=== PATIENT | female | born 1960 | race Caucasian/White ===

== ENCOUNTER 2021-08-25 23:33 | Emergency (ER) | payer BC ==
[~2021-08-25] VITALS: Ht 162.6 cm; Wt 81.2 kg
[2021-08-26] VITALS: BP_SYST 136
--- NOTE | 2021-08-26 | NUR ---
Patient to ER bed 06 to gown for evaluation. Side rails up. Report given to BERENICE Arshad
--- NOTE | 2021-08-26 00:12 | NUR ---
60 YR OLD AOX4, AMBULATORY FEMALE WITH COMPLAINT OF RIGHT LEG SWELLING WITH SEVERE KNEE PAIN 6/10 FOR ONE DAY. PT REPORTS RECENT BREAST CA DIAGNOSIS AND UNDERGOING CHEMO THERAPY WEKKLY FOR THE LAST 5 WEEKS. PT PENDING MD EVALUATION. WILL MONITOR NEEDED
--- NOTE | 2021-08-26 01:00 | NUR ---
AT THE BEDSIDE FOR PT EVALUATION
--- NOTE | 2021-08-26 01:44 | NUR ---
PT DISCHARGED WITH HOMECARE INSTRUCTIONS. PT ENCOUARGED TO FOLLOW UP WITH PRIMARY CARE DOCTOR WITHIN 3 TO 5 DAYS. ALL QUESTIONS ANSWERED, PT DISCHARGED WITH ALL BELONGINGS
== END 2021-08-26 01:44 | disposition home or self-care (01) ==
LOC: SED 23:33
DX: I80.01 Phlebitis and thrombophlebitis of superficial vessels of right lower extremity (principal); I80.251 Phlebitis and thrombophlebitis of right calf muscular vein
CPT/HCPCS: 99281

== ENCOUNTER 2023-06-01 16:40 | Inpatient (IN) | payer BC ==
[~2023-06-01] VITALS: Ht 162.6 cm; Wt 72.1 kg
[~2023-06-01 16:40] MED LIST: BENA40TA89 PO; CHOL100034 PO; CYCL10TA25 PO; HYDR12.55 PO; LEVO-62 PO; PRED20TA PO; PREG150C47 PO; WELSR150 PO
[2023-06-01 17:01] VITALS: BP_SYST 128; PULSE 128; RESP 18; TEMP 97.2; O2SAT 98
[2023-06-01 17:11] LABS: ABG O2 SAT% ESTIMATE 99.7 % (94.0-100.0); BLOOD GAS BASE EXCESS -0.4 mmol/L (-3.0-3.0); BLOOD GAS HCO3 21.3 mmol/L (21.0-27.0); BLOOD GAS PCO2 27.9 mmHg (35.0-45.0); BLOOD GAS PO2 261.2 mmHg (75.0-100.0)
[2023-06-01 17:14] LABS: BLOOD GAS PH 7.501 (7.350-7.450)
[2023-06-01] MEDS: LevALBUTEROL HCL 1.25 MG/0.5 ML *CONC.* VIAL.NEB (XOPENEX CONC.) INH ONE (17:27)
[2023-06-01 18:01] LABS: HEMATOCRIT 37.5 % (36-48); HEMOGLOBIN 12.4 g/dL (12.0-16.0); MEAN CORPUSCULAR HEMOGLOBIN 28 pg (27-31); MEAN CORPUSCULAR HGB CONC 33 % (32-36); MEAN CORPUSCULAR VOLUME 85 fL (79.0-98.0); PLATELET COUNT (AUTO) 140 K/uL (130-430); RED BLOOD CELL COUNT(AUTO) 4.41 MIL/uL (4.2-6.2); RED CELL DISTRIBUTION WIDTH 16.3 % (9.0-15.0); WHITE BLOOD COUNT (AUTO) 15.7 K/uL (4.8-10.8)
[2023-06-01 18:05] LABS: INR 1.1 (0.8-1.2); PROTHROMBIN TIME 11.3 SECS (9.5-12.5)
[2023-06-01 18:08] LABS: ALANINE AMINOTRANSFERASE 47 U/L (12-78); ALBUMIN 1.8 g/dL (3.4-4.8); ANION GAP 11 (5-15); ASPARTATE AMINOTRANSFERASE 91 U/L (10-37); CALCIUM 8.3 mg/dL (8.4-11.0); CARBON DIOXIDE 24 mmol/L (23-29); CHLORIDE 104 mmol/L (98-107); CREATININE 0.69 mg/dL (0.55-1.30); GFR AFRICAN AMERICAN 112 mL/min (>90); GFR NON AFRICAN-AMERICAN 92 mL/min (>90); GLUCOSE 102 mg/dL (74-106); SODIUM SERUM 139 mmol/L (136-145); TOTAL BILIRUBIN 0.6 mg/dL (0.0-1.0); TOTAL PROTEIN, SERUM 6.2 g/dL (6.4-8.3); UREA NITROGEN, BLOOD 24 mg/dL (8-21)
[2023-06-01] MEDS: NACL 0.9% 1,000 ML IV ONE ×2 (18:08→20:07)
[2023-06-01] MEDS: KETOROLAC TROMETHAMINE 30 MG VIAL IVP ONE (18:11)
[2023-06-01 18:12] LABS: BAND % (MANUAL) 2 % (0-6); BASOPHILS % (MANUAL) 0 % (0-2); EOSINOPHILS % (MANUAL) 0 % (0-7); LYMPHOCYTES % (MANUAL) 10 % (20-46); MONOCYTES % (MANUAL) 7 % (0-11); PLATELET ESTIMATE ADEQUATE (ADEQUATE)
[2023-06-01 18:16] LABS: BILIRUBIN,DIRECT 0.1 mg/dL (0.0-0.3)
[2023-06-01] MEDS: DEXAMETHASONE SOD PHOSPHATE 10 MG/ML VIAL IVP ONE (18:36)
[2023-06-01 18:41] LABS: BILIRUBIN,URINE NEGATIVE (NEGATIVE); BLOOD, URINE NEGATIVE (NEGATIVE); CLARITY/URINE CLEAR (CLEAR); COLOR,URINE YELLOW (YELLOW); GLUCOSE,URINE NEGATIVE (NEGATIVE); KETONES,URINE 1+ (NEGATIVE); LEUKOCYTE ESTERASE ,URINE NEGATIVE (NEGATIVE); NITRITE, URINE NEGATIVE (NEGATIVE); PROTEIN URINE NEGATIVE (NEGATIVE); UROBILINOGEN,URINE 0.2 (0.2-1.0)
[2023-06-01] MEDS ORDERED: PIPERACILLIN/TAZOBACTAM 3.375 GM/VIAL (ZOSYN) IV ONE (18:50)
[2023-06-01] MEDS: PIPERACILLIN/TAZO 3.375 GM in NS 50 ML IV ONE (18:56)
[2023-06-01] MEDS: guaiFENesin/DEXTROMETHORPHAN 10 ML UDC PO ONE (18:57)
[2023-06-01] MEDS ORDERED: VANCOMYCIN HCL 1000 MG/VIAL IV ONE (20:05)
[2023-06-01] MEDS: VANCOMYCIN HCL 1,000 MG in NS 250 ML IV ONE (20:13)
[2023-06-01] MEDS ORDERED: NALOXONE HCL 0.4 MG/ML AMP (NARCAN) IVP PRN ×2 (20:30)
[2023-06-01] MEDS ORDERED: HYDROcodone/ACETAMIN 5-325 MG TAB (NORCO/ VICODIN) PO PRN (20:30)
[2023-06-01] MEDS ORDERED: ONDANSETRON HCL 4 MG/2 ML VIAL IVP PRN (20:30)
[2023-06-01] MEDS ORDERED: LORazepam 2 MG/ML VIAL IVP PRN (20:30)
[2023-06-01] MEDS ORDERED: HYDROcodone/ACETAMIN 10-325 MG TAB PO PRN (20:30)
[2023-06-01] MEDS ORDERED: ACETAMINOPHEN 325 MG TABLET PO PRN (20:30)
[2023-06-01 20:32] VITALS: BP_SYST 124; PULSE 114; O2SAT 98
[2023-06-01] MEDS ORDERED: BENAZEPRIL HCL 20 MG TABLET (LOTENSIN) PO SCH (21:00)
[2023-06-01] MEDS: buPROPion HCL 150 MG TABLET.SA PO SCH (22:14)
[2023-06-01] MEDS: NORMAL SALINE 5 ML DISP.SYRIN IVF SCH (22:14)
[2023-06-01 22:51] LABS: INFLUENZA TYPE A Negative (NEGATIVE); INFLUENZA TYPE B NEGATIVE (NEGATIVE)
[2023-06-01 23:50] VITALS: O2SAT 97
[2023-06-02] VITALS (25 sets, daily range): BP systolic 111–151; PULSE 96–113; RESP 15–38; TEMP 97.5–97.8; O2SAT 88–100
[2023-06-02] MEDS: ALBUTEROL SULFATE 0.083% 2.5 MG/3 ML VIAL.NEB INH SCH (00:37)
[2023-06-02] MEDS: IPRATROPIUM BROM 0.5 MG/2.5 ML VIAL.NEB (ATROVENT) INH SCH (00:38)
[2023-06-02] MEDS ORDERED: PIPERACILLIN/TAZOBACTAM 3.375 GM/VIAL (ZOSYN) IV ONE ×2 (01:18→06:13)
[2023-06-02] MEDS: PIPERACILLIN/TAZO 3.375/DEX-IS 50 ML IV SCH (01:23)
[2023-06-02 04:21] LABS: CALCIUM 8.4 mg/dL (8.4-11.0); CREATININE 0.74 mg/dL (0.55-1.30); POTASSIUM 4.3 mmol/L (3.5-5.1)
[2023-06-02 04:36] LABS: BASOPHILS % (AUTO) 0.2 % (0.0-2.0); EOSINOPHILS % (AUTO) 0.1 % (0.0-4.0); HEMATOCRIT 33.7 % (36-48); LYMPHOCYTES # (AUTO) 0.8 K/uL (1.0-5.5); LYMPHOCYTES % (AUTO) 5.5 % (20.5-51.5); MEAN CORPUSCULAR HEMOGLOBIN 28 pg (27-31); MEAN CORPUSCULAR HGB CONC 33 % (32-36); MEAN CORPUSCULAR VOLUME 85 fL (79.0-98.0); MONOCYTES # (AUTO) 0.6 K/uL (0.0-1.0); MONOCYTES % (AUTO) 4.4 % (1.7-9.3); NEUTROPHILS # (AUTO) 12.5 K/uL (1.8-7.7); NEUTROPHILS % (AUTO) 89.8 % (40.0-70.0); PLATELET COUNT (AUTO) 134 K/uL (130-430); RED BLOOD CELL COUNT(AUTO) 3.94 MIL/uL (4.2-6.2); RED CELL DISTRIBUTION WIDTH 16.7 % (9.0-15.0); WHITE BLOOD COUNT (AUTO) 13.9 K/uL (4.8-10.8)
[2023-06-02] MEDS ORDERED: NON-FORMULARY MEDICATION (Hydrochlorothiazide 12.5 MG) PO SCH (09:00)
[2023-06-02] MEDS ORDERED: PREGABALIN 150 MG PO SCH (09:00)
[2023-06-02] MEDS: lisinopriL 20 MG TABLET PO SCH (10:53)
[2023-06-02] MEDS: HYDROCHLOROTHIAZIDE 12.5 MG CAPSULE (HCTZ) PO SCH (10:54)
[2023-06-02] MEDS: CYCLOBENZAPRINE HCL 10 MG TABLET (FLEXERIL) PO SCH (10:54)
[2023-06-02] MEDS: PREGABALIN 75 MG CAPSULE (LYRICA) PO SCH (10:55)
[2023-06-02] MEDS: METHYLPREDNISOLONE SOD SUCC 40 MG/ML VIAL IVP SCH (13:51)
[2023-06-02] MEDS ORDERED: methylPREDNISolone SOD SUCC/PF 62.5 MG/ML VIAL IVP SCH (14:00)
[2023-06-02] MEDS ORDERED: iohexoL 350 mgI/mL, 100 ML INFUS..BTL IV ONE (15:03)
[2023-06-03] VITALS (32 sets, daily range): BP systolic 104–145; PULSE 90–119; RESP 12–29; TEMP 96–98.6; O2SAT 90–98
[2023-06-03 06:12] LABS: BASOPHILS % (AUTO) 0.2 % (0.0-2.0); HEMATOCRIT 32.3 % (36-48); HEMOGLOBIN 10.5 g/dL (12.0-16.0); LYMPHOCYTES # (AUTO) 0.7 K/uL (1.0-5.5); LYMPHOCYTES % (AUTO) 4.5 % (20.5-51.5); MEAN CORPUSCULAR HEMOGLOBIN 28 pg (27-31); MEAN CORPUSCULAR HGB CONC 33 % (32-36); MEAN CORPUSCULAR VOLUME 85 fL (79.0-98.0); MONOCYTES # (AUTO) 0.9 K/uL (0.0-1.0); MONOCYTES % (AUTO) 5.6 % (1.7-9.3); NEUTROPHILS # (AUTO) 13.9 K/uL (1.8-7.7); NEUTROPHILS % (AUTO) 89.7 % (40.0-70.0); PLATELET COUNT (AUTO) 137 K/uL (130-430); RED BLOOD CELL COUNT(AUTO) 3.79 MIL/uL (4.2-6.2); RED CELL DISTRIBUTION WIDTH 17.2 % (9.0-15.0); WHITE BLOOD COUNT (AUTO) 15.5 K/uL (4.8-10.8)
[2023-06-03 06:19] LABS: ERYTHROCYTE SEDIMENTATION RATE 59 MM/HR (0-20)
[2023-06-03 06:44] LABS: CALCIUM 8.9 mg/dL (8.4-11.0); CREATININE 0.83 mg/dL (0.55-1.30); POTASSIUM 4.8 mmol/L (3.5-5.1)
[2023-06-03] MEDS: CHOLECALCIFEROL (VITAMIN D3) 2,000 UNIT TABLET PO SCH (08:16)
[2023-06-03] MEDS: AZITHROMYCIN 500 MG in NS 250 ML IV SCH (13:07)
[2023-06-03] MEDS: FUROSEMIDE 20 MG/2 ML VIAL IVP ONE (14:47)
[2023-06-03] MEDS: METHYLPREDNISOLONE SOD SUCC 40 MG/ML VIAL IVP SCH (22:05)
[2023-06-04] VITALS (37 sets, daily range): BP systolic 100–130; PULSE 90–117; RESP 11–35; TEMP 97.8–99.3; O2SAT 18–99
[2023-06-04 05:29] LABS: ERYTHROCYTE SEDIMENTATION RATE 30 MM/HR (0-20)
[2023-06-04 05:31] LABS: BASOPHILS % (AUTO) 0.1 % (0.0-2.0); HEMATOCRIT 30.5 % (36-48); LYMPHOCYTES # (AUTO) 0.7 K/uL (1.0-5.5); LYMPHOCYTES % (AUTO) 4.3 % (20.5-51.5); MEAN CORPUSCULAR HEMOGLOBIN 28 pg (27-31); MEAN CORPUSCULAR HGB CONC 33 % (32-36); MEAN CORPUSCULAR VOLUME 84 fL (79.0-98.0); MONOCYTES # (AUTO) 0.7 K/uL (0.0-1.0); MONOCYTES % (AUTO) 4.5 % (1.7-9.3); NEUTROPHILS # (AUTO) 14.1 K/uL (1.8-7.7); NEUTROPHILS % (AUTO) 91.1 % (40.0-70.0); PLATELET COUNT (AUTO) 128 K/uL (130-430); RED BLOOD CELL COUNT(AUTO) 3.61 MIL/uL (4.2-6.2); RED CELL DISTRIBUTION WIDTH 17.1 % (9.0-15.0); WHITE BLOOD COUNT (AUTO) 15.5 K/uL (4.8-10.8)
[2023-06-04 06:15] LABS: ALBUMIN 1.7 g/dL (3.4-4.8); CALCIUM 8.3 mg/dL (8.4-11.0); CREATININE 0.9 mg/dL (0.55-1.30); PHOSPHORUS 4.1 mg/dL (2.7-4.5); TOTAL BILIRUBIN 0.5 mg/dL (0.0-1.0); TOTAL PROTEIN, SERUM 5.4 g/dL (6.4-8.3)
[2023-06-04] MEDS: FUROSEMIDE 20 MG/2 ML VIAL IVP SCH (09:17)
[2023-06-05] VITALS (31 sets, daily range): BP systolic 110–142; PULSE 93–118; RESP 15–31; TEMP 97–99; O2SAT 86–98
[2023-06-05 06:10] LABS: BASOPHILS % (AUTO) 0.1 % (0.0-2.0); HEMATOCRIT 31.7 % (36-48); HEMOGLOBIN 10.4 g/dL (12.0-16.0); LYMPHOCYTES # (AUTO) 0.6 K/uL (1.0-5.5); LYMPHOCYTES % (AUTO) 4.3 % (20.5-51.5); MEAN CORPUSCULAR HEMOGLOBIN 28 pg (27-31); MEAN CORPUSCULAR HGB CONC 33 % (32-36); MEAN CORPUSCULAR VOLUME 85 fL (79.0-98.0); MONOCYTES # (AUTO) 0.6 K/uL (0.0-1.0); MONOCYTES % (AUTO) 3.9 % (1.7-9.3); NEUTROPHILS # (AUTO) 13.6 K/uL (1.8-7.7); NEUTROPHILS % (AUTO) 91.7 % (40.0-70.0); PLATELET COUNT (AUTO) 118 K/uL (130-430); RED BLOOD CELL COUNT(AUTO) 3.75 MIL/uL (4.2-6.2); RED CELL DISTRIBUTION WIDTH 17.1 % (9.0-15.0); WHITE BLOOD COUNT (AUTO) 14.8 K/uL (4.8-10.8)
[2023-06-05 06:48] LABS: CALCIUM 8.6 mg/dL (8.4-11.0); CREATININE 0.75 mg/dL (0.55-1.30); POTASSIUM 3.8 mmol/L (3.5-5.1)
[2023-06-05 06:53] LABS: ERYTHROCYTE SEDIMENTATION RATE 87 MM/HR (0-20)
[2023-06-06] VITALS (30 sets, daily range): BP systolic 89–138; PULSE 96–112; RESP 13–35; TEMP 97.3–98.6; O2SAT 87–98
[2023-06-06 04:12] LABS: ERYTHROCYTE SEDIMENTATION RATE 89 MM/HR (0-20)
[2023-06-06 04:18] LABS: BASOPHILS % (AUTO) 0.3 % (0.0-2.0); EOSINOPHILS % (AUTO) 0.1 % (0.0-4.0); HEMOGLOBIN 10.6 g/dL (12.0-16.0); LYMPHOCYTES # (AUTO) 0.8 K/uL (1.0-5.5); MEAN CORPUSCULAR HEMOGLOBIN 28 pg (27-31); MEAN CORPUSCULAR HGB CONC 33 % (32-36); MEAN CORPUSCULAR VOLUME 84 fL (79.0-98.0); MONOCYTES # (AUTO) 0.5 K/uL (0.0-1.0); MONOCYTES % (AUTO) 3.1 % (1.7-9.3); NEUTROPHILS # (AUTO) 13.9 K/uL (1.8-7.7); NEUTROPHILS % (AUTO) 91.5 % (40.0-70.0); PLATELET COUNT (AUTO) 109 K/uL (130-430); RED BLOOD CELL COUNT(AUTO) 3.82 MIL/uL (4.2-6.2); RED CELL DISTRIBUTION WIDTH 16.9 % (9.0-15.0); WHITE BLOOD COUNT (AUTO) 15.2 K/uL (4.8-10.8)
[2023-06-06 04:46] LABS: ALBUMIN 1.7 g/dL (3.4-4.8); CALCIUM 8.5 mg/dL (8.4-11.0); CREATININE 0.82 mg/dL (0.55-1.30); POTASSIUM 3.7 mmol/L (3.5-5.1); TOTAL BILIRUBIN 0.6 mg/dL (0.0-1.0); TOTAL PROTEIN, SERUM 5.5 g/dL (6.4-8.3)
[2023-06-06] MEDS: MICAFUNGIN SODIUM 50 MG in NS 50 ML IV SCH (12:57)
[2023-06-07] VITALS (31 sets, daily range): BP systolic 85–119; PULSE 85–105; RESP 15–29; TEMP 97.9–98.3; O2SAT 92–100
[2023-06-07 05:01] LABS: BASOPHILS % (AUTO) 0.1 % (0.0-2.0); EOSINOPHILS % (AUTO) 0.2 % (0.0-4.0); HEMATOCRIT 32.9 % (36-48); HEMOGLOBIN 10.9 g/dL (12.0-16.0); LYMPHOCYTES # (AUTO) 0.6 K/uL (1.0-5.5); LYMPHOCYTES % (AUTO) 4.8 % (20.5-51.5); MEAN CORPUSCULAR HEMOGLOBIN 28 pg (27-31); MEAN CORPUSCULAR HGB CONC 33 % (32-36); MEAN CORPUSCULAR VOLUME 85 fL (79.0-98.0); MONOCYTES # (AUTO) 0.3 K/uL (0.0-1.0); MONOCYTES % (AUTO) 2.5 % (1.7-9.3); NEUTROPHILS # (AUTO) 12.4 K/uL (1.8-7.7); NEUTROPHILS % (AUTO) 92.4 % (40.0-70.0); PLATELET COUNT (AUTO) 97 K/uL (130-430); RED BLOOD CELL COUNT(AUTO) 3.88 MIL/uL (4.2-6.2); RED CELL DISTRIBUTION WIDTH 17.1 % (9.0-15.0); WHITE BLOOD COUNT (AUTO) 13.5 K/uL (4.8-10.8)
[2023-06-07 05:16] LABS: ERYTHROCYTE SEDIMENTATION RATE 69 MM/HR (0-20)
[2023-06-07 05:20] LABS: INR 1.1 (0.8-1.2)
[2023-06-07 05:34] LABS: CALCIUM 8.5 mg/dL (8.4-11.0); POTASSIUM 3.7 mmol/L (3.5-5.1)
[2023-06-07 05:35] LABS: ALBUMIN 1.6 g/dL (3.4-4.8); CREATININE 0.85 mg/dL (0.55-1.30); TOTAL BILIRUBIN 0.5 mg/dL (0.0-1.0); TOTAL PROTEIN, SERUM 5.4 g/dL (6.4-8.3)
[2023-06-07 05:39] LABS: TOTAL IRON BIND. CAPACITY 162 ug/dL (250-450)
[2023-06-08] VITALS (37 sets, daily range): BP systolic 96–134; PULSE 82–109; RESP 14–28; TEMP 97.7–98.6; O2SAT 93–99
[2023-06-08 04:27] LABS: ERYTHROCYTE SEDIMENTATION RATE 74 MM/HR (0-20)
[2023-06-08 04:39] LABS: BASOPHILS % (AUTO) 0.3 % (0.0-2.0); EOSINOPHILS % (AUTO) 0.1 % (0.0-4.0); HEMATOCRIT 32.4 % (36-48); HEMOGLOBIN 10.6 g/dL (12.0-16.0); LYMPHOCYTES # (AUTO) 0.8 K/uL (1.0-5.5); LYMPHOCYTES % (AUTO) 5.5 % (20.5-51.5); MEAN CORPUSCULAR HEMOGLOBIN 28 pg (27-31); MEAN CORPUSCULAR HGB CONC 33 % (32-36); MEAN CORPUSCULAR VOLUME 85 fL (79.0-98.0); MONOCYTES # (AUTO) 0.4 K/uL (0.0-1.0); NEUTROPHILS # (AUTO) 12.8 K/uL (1.8-7.7); NEUTROPHILS % (AUTO) 91.1 % (40.0-70.0); PLATELET COUNT (AUTO) 78 K/uL (130-430); RED BLOOD CELL COUNT(AUTO) 3.83 MIL/uL (4.2-6.2); RED CELL DISTRIBUTION WIDTH 16.9 % (9.0-15.0); WHITE BLOOD COUNT (AUTO) 14.1 K/uL (4.8-10.8)
[2023-06-08 05:43] LABS: ALBUMIN 1.6 g/dL (3.4-4.8); CREATININE 0.78 mg/dL (0.55-1.30); POTASSIUM 3.7 mmol/L (3.5-5.1); TOTAL BILIRUBIN 0.4 mg/dL (0.0-1.0); TOTAL PROTEIN, SERUM 5.3 g/dL (6.4-8.3)
[2023-06-08 08:06] LABS: AFP, TUMOR MARKER 3.1 ng/mL (0.0-9.2)
[2023-06-08 13:06] LABS: ALPHA-1-ANTITRYPSIN, S 273 mg/dL (101-187); ANTI NUCLEAR AB WITH REFLEX Negative (Negative)
[2023-06-08 14:06] LABS: HEPATITIS A AB, IgM Negative (Negative); HEPATITIS B CORE AB, IgM Negative (Negative); HEPATITIS B SURFACE AG Negative (Negative)
[2023-06-08 15:06] LABS: HEPATITIS C VIRUS AB Non Reactive (Non Reactive)
[2023-06-09] VITALS (40 sets, daily range): BP systolic 86–123; PULSE 83–112; RESP 13–28; TEMP 97.6–98.8; O2SAT 94–98
[2023-06-09 05:50] LABS: ERYTHROCYTE SEDIMENTATION RATE 89 MM/HR (0-20)
[2023-06-09 05:55] LABS: CALCIUM 8.9 mg/dL (8.4-11.0); CREATININE 0.71 mg/dL (0.55-1.30); POTASSIUM 3.7 mmol/L (3.5-5.1)
[2023-06-09 06:54] LABS: HEMATOCRIT 32.6 % (36-48); HEMOGLOBIN 10.9 g/dL (12.0-16.0); MEAN CORPUSCULAR HEMOGLOBIN 28 pg (27-31); MEAN CORPUSCULAR HGB CONC 33 % (32-36); MEAN CORPUSCULAR VOLUME 84 fL (79.0-98.0); PLATELET COUNT (AUTO) 67 K/uL (130-430); RED BLOOD CELL COUNT(AUTO) 3.87 MIL/uL (4.2-6.2); RED CELL DISTRIBUTION WIDTH 17.2 % (9.0-15.0); WHITE BLOOD COUNT (AUTO) 16.4 K/uL (4.8-10.8)
[2023-06-09 07:44] LABS: BAND % (MANUAL) 1 % (0-6); BASOPHILS % (MANUAL) 0 % (0-2); EOSINOPHILS % (MANUAL) 0 % (0-7); LYMPHOCYTES % (MANUAL) 4 % (20-46); MONOCYTES % (MANUAL) 6 % (0-11)
[2023-06-09 07:45] LABS: PLATELET ESTIMATE DECREASED (ADEQUATE)
[2023-06-10] VITALS (29 sets, daily range): BP systolic 86–111; PULSE 86–109; RESP 13–34; TEMP 97.4–98.8; O2SAT 85–98
[2023-06-10 05:47] LABS: BASOPHILS % (AUTO) 0.1 % (0.0-2.0); EOSINOPHILS % (AUTO) 0.1 % (0.0-4.0); HEMATOCRIT 32.5 % (36-48); LYMPHOCYTES # (AUTO) 0.7 K/uL (1.0-5.5); LYMPHOCYTES % (AUTO) 5.2 % (20.5-51.5); MEAN CORPUSCULAR HEMOGLOBIN 28 pg (27-31); MEAN CORPUSCULAR HGB CONC 34 % (32-36); MEAN CORPUSCULAR VOLUME 83 fL (79.0-98.0); MONOCYTES # (AUTO) 0.5 K/uL (0.0-1.0); MONOCYTES % (AUTO) 3.5 % (1.7-9.3); NEUTROPHILS # (AUTO) 12.5 K/uL (1.8-7.7); NEUTROPHILS % (AUTO) 91.1 % (40.0-70.0); PLATELET COUNT (AUTO) 66 K/uL (130-430); WHITE BLOOD COUNT (AUTO) 13.7 K/uL (4.8-10.8)
[2023-06-10 06:04] LABS: CALCIUM 8.7 mg/dL (8.4-11.0); CREATININE 0.72 mg/dL (0.55-1.30); POTASSIUM 3.4 mmol/L (3.5-5.1)
[2023-06-10 08:28] LABS: ERYTHROCYTE SEDIMENTATION RATE 89 MM/HR (0-20)
[2023-06-10] MEDS: POTASSIUM CHLORIDE 20 MEQ TABLET.ER PO ONE (11:46)
[2023-06-11] VITALS (32 sets, daily range): BP systolic 91–117; PULSE 87–113; RESP 17–29; TEMP 97.8–98.7; O2SAT 93–98
[2023-06-11 04:40] LABS: ERYTHROCYTE SEDIMENTATION RATE 90 MM/HR (0-20)
[2023-06-11 04:53] LABS: BASOPHILS % (AUTO) 0.2 % (0.0-2.0); EOSINOPHILS % (AUTO) 0.1 % (0.0-4.0); HEMATOCRIT 33.9 % (36-48); HEMOGLOBIN 11.3 g/dL (12.0-16.0); LYMPHOCYTES # (AUTO) 0.8 K/uL (1.0-5.5); LYMPHOCYTES % (AUTO) 5.6 % (20.5-51.5); MEAN CORPUSCULAR HEMOGLOBIN 28 pg (27-31); MEAN CORPUSCULAR HGB CONC 33 % (32-36); MEAN CORPUSCULAR VOLUME 84 fL (79.0-98.0); MONOCYTES # (AUTO) 0.5 K/uL (0.0-1.0); MONOCYTES % (AUTO) 3.6 % (1.7-9.3); NEUTROPHILS # (AUTO) 12.3 K/uL (1.8-7.7); NEUTROPHILS % (AUTO) 90.5 % (40.0-70.0); RED BLOOD CELL COUNT(AUTO) 4.04 MIL/uL (4.2-6.2); RED CELL DISTRIBUTION WIDTH 17.7 % (9.0-15.0); WHITE BLOOD COUNT (AUTO) 13.6 K/uL (4.8-10.8)
[2023-06-11 05:07] LABS: PLATELET COUNT (AUTO) 69 K/uL (130-430)
[2023-06-11 05:21] LABS: ALBUMIN 1.6 g/dL (3.4-4.8); CREATININE 0.77 mg/dL (0.55-1.30); TOTAL BILIRUBIN 0.4 mg/dL (0.0-1.0); TOTAL PROTEIN, SERUM 5.4 g/dL (6.4-8.3)
[2023-06-12] VITALS (30 sets, daily range): BP systolic 95–139; PULSE 91–114; RESP 13–40; TEMP 97–98.2; O2SAT 91–99
[2023-06-12 05:29] LABS: BASOPHILS % (AUTO) 0.1 % (0.0-2.0); EOSINOPHILS % (AUTO) 0.4 % (0.0-4.0); HEMATOCRIT 34.3 % (36-48); HEMOGLOBIN 11.5 g/dL (12.0-16.0); LYMPHOCYTES # (AUTO) 0.7 K/uL (1.0-5.5); LYMPHOCYTES % (AUTO) 5.9 % (20.5-51.5); MEAN CORPUSCULAR HEMOGLOBIN 28 pg (27-31); MEAN CORPUSCULAR HGB CONC 34 % (32-36); MEAN CORPUSCULAR VOLUME 84 fL (79.0-98.0); MONOCYTES # (AUTO) 0.4 K/uL (0.0-1.0); MONOCYTES % (AUTO) 3.7 % (1.7-9.3); NEUTROPHILS # (AUTO) 10.8 K/uL (1.8-7.7); NEUTROPHILS % (AUTO) 89.9 % (40.0-70.0); PLATELET COUNT (AUTO) 68 K/uL (130-430); RED BLOOD CELL COUNT(AUTO) 4.09 MIL/uL (4.2-6.2); RED CELL DISTRIBUTION WIDTH 17.7 % (9.0-15.0); WHITE BLOOD COUNT (AUTO) 12.1 K/uL (4.8-10.8)
[2023-06-12 05:33] LABS: ERYTHROCYTE SEDIMENTATION RATE 90 MM/HR (0-20)
[2023-06-12 05:50] LABS: CALCIUM 9.3 mg/dL (8.4-11.0); CREATININE 0.76 mg/dL (0.55-1.30); POTASSIUM 3.7 mmol/L (3.5-5.1)
[2023-06-12 18:06] LABS: ANTI-SMOOTH MUSCLE AB 2 Units (0-19)
[2023-06-12] MEDS: SULFAMETHOXAZOLE/TRIMETHOPR DS 1 TABLET PO SCH (21:41)
[2023-06-13] VITALS (18 sets, daily range): BP systolic 104–134; PULSE 92–101; RESP 16–23; TEMP 97.8–98.2; O2SAT 92–99
[2023-06-13] MEDS ORDERED: HYDROcodone/ACETAMIN 10-325 MG TAB PO PRN (01:00)
[2023-06-13] MEDS ORDERED: NALOXONE HCL 0.4 MG/ML AMP (NARCAN) IVP PRN (01:00)
[2023-06-13] MEDS: HYDROcodone/ACETAMIN 5-325 MG TAB (NORCO/ VICODIN) PO PRN (01:06)
[2023-06-13 05:21] LABS: ERYTHROCYTE SEDIMENTATION RATE 89 MM/HR (0-20)
[2023-06-13 05:36] LABS: BASOPHILS % (AUTO) 0.1 % (0.0-2.0); EOSINOPHILS % (AUTO) 0.1 % (0.0-4.0); HEMATOCRIT 34.2 % (36-48); HEMOGLOBIN 11.4 g/dL (12.0-16.0); LYMPHOCYTES # (AUTO) 0.9 K/uL (1.0-5.5); LYMPHOCYTES % (AUTO) 7.3 % (20.5-51.5); MEAN CORPUSCULAR HEMOGLOBIN 28 pg (27-31); MEAN CORPUSCULAR HGB CONC 33 % (32-36); MEAN CORPUSCULAR VOLUME 84 fL (79.0-98.0); MONOCYTES # (AUTO) 0.6 K/uL (0.0-1.0); MONOCYTES % (AUTO) 4.5 % (1.7-9.3); NEUTROPHILS # (AUTO) 11.1 K/uL (1.8-7.7); PLATELET COUNT (AUTO) 69 K/uL (130-430); RED BLOOD CELL COUNT(AUTO) 4.05 MIL/uL (4.2-6.2); WHITE BLOOD COUNT (AUTO) 12.6 K/uL (4.8-10.8)
[2023-06-13 08:26] LABS: CALCIUM 9.5 mg/dL (8.4-11.0); CREATININE 0.57 mg/dL (0.55-1.30); POTASSIUM 3.9 mmol/L (3.5-5.1); TOTAL BILIRUBIN 0.4 mg/dL (0.0-1.0)
[2023-06-13 08:27] LABS: ALBUMIN 1.5 g/dL (3.4-4.8); TOTAL PROTEIN, SERUM 5.3 g/dL (6.4-8.3)
[2023-06-13] MEDS ORDERED: SULF1TAB48 PO (09:54)
== END 2023-06-13 11:55 | disposition hospice, home (50) | DRG 871 ==
LOC: SED 16:40 → STU 19:43 → SIC 06-02 02:12
PROVIDERS: ADMIT Preventive Medicine Preventive Medicine/Occupational Environmental Medicine; ATTEND Preventive Medicine Preventive Medicine/Occupational Environmental Medicine
PROC: 5A0955A Assistance with Respiratory Ventilation, Greater than 96 Consecutive Hours, High Flow/Velocity Cannula (ICD-10-PCS; principal; 2023-06-03)
DX: A41.9 Sepsis, unspecified organism (principal); E43 Unspecified severe protein-calorie malnutrition; J96.21 Acute and chronic respiratory failure with hypoxia; J18.9 Pneumonia, unspecified organism; J44.0 Chronic obstructive pulmonary disease with (acute) lower respiratory infection; C78.00 Secondary malignant neoplasm of unspecified lung; C79.51 Secondary malignant neoplasm of bone; D84.9 Immunodeficiency, unspecified; Z20.822 Contact with and (suspected) exposure to COVID-19; E83.52 Hypercalcemia; C50.912 Malignant neoplasm of unspecified site of left female breast; D64.9 Anemia, unspecified; D69.6 Thrombocytopenia, unspecified; E88.09 Other disorders of plasma-protein metabolism, not elsewhere classified; I10 Essential (primary) hypertension; J84.89 Other specified interstitial pulmonary diseases; Z80.0 Family history of malignant neoplasm of digestive organs; Z80.3 Family history of malignant neoplasm of breast; Z85.3 Personal history of malignant neoplasm of breast; Z86.16 Personal history of COVID-19; Z92.21 Personal history of antineoplastic chemotherapy; Z92.3 Personal history of irradiation; Z99.81 Dependence on supplemental oxygen; Z79.899 Other long term (current) drug therapy; Z51.5 Encounter for palliative care; Z68.25 Body mass index [BMI] 25.0-25.9, adult
CPT/HCPCS: 36415; 36600; 71045; 71275; 76700; 80048; 80053; 80074; 80076; 81001; 81003; 82103; 82105; 82390; 82803; 83516; 83540; 83550; 83605; 83735; 83880; 84100; 84484; 85007; 85025; 85027; 85610; 85651; 85730; 86038; 87040; 87081; 87086; 87305; 87497; 93005; 94640; 94760; 99291; 99292; G0378; J0456; J1030; J1100; J1885; J1940; J2543; J3370; J7050; J7612; Q9967